=== PATIENT | female | born 1960 | race Caucasian/White ===

== ENCOUNTER → 2023-01-18 | Outpatient (CLI) | payer BC ==
[~2023-01-18] MED LIST: IOHEXOL 350 MG/ML 100ML INFUS..BTL IV ONE; METOPROLOL TARTRATE 1 MG/ML 5ML VIAL IV ONE
== END | disposition home or self-care (01) ==
LOC: RAH 09:10
PROVIDERS: ATTEND Student in an Organized Health Care Education/Training Program
DX: K44.9 Diaphragmatic hernia without obstruction or gangrene (principal); R07.9 Chest pain, unspecified; M47.815 Spondylosis without myelopathy or radiculopathy, thoracolumbar region
CPT/HCPCS: 75574; J3490; Q9967

== ENCOUNTER → 2023-02-15 | Outpatient (CLI) | payer BC | END | disposition home or self-care (01) | LOC: SHCH 10:35 → EDUNIT# 11:00 | PROVIDERS: ATTEND Student in an Organized Health Care Education/Training Program | DX: R07.89 Other chest pain (principal); I70.219 Atherosclerosis of native arteries of extremities with intermittent claudication, unspecified extremity | CPT/HCPCS: 93306; 93925; 93970 ==

== ENCOUNTER 2023-03-16 05:49 | Day surgery (SDC) | payer BC ==
[2023-03-14 14:01] LABS: BASOPHILS # (AUTO) 0.04 K/uL (0.00-0.20); BASOPHILS % (AUTO) 0.7 % (0.0-5.0); EOSINOPHILS # (AUTO) 0.09 K/uL (0.00-0.70); EOSINOPHILS % (AUTO) 1.5 % (0.0-8.0); HEMATOCRIT 40.3 % (36-48); IMMATURE GRANULOCYTE ABSOLUTE 0.02 K/uL (0-1); LYMPHOCYTES # (AUTO) 1.2 K/uL (1.0-4.8); LYMPHOCYTES % (AUTO) 19.5 % (21.0-51.0); MEAN CORPUSCULAR HEMOGLOBIN 31.3 pg (27.0-33.0); MEAN CORPUSCULAR HGB CONC 33.3 g/dL (32.0-36.0); MEAN CORPUSCULAR VOLUME 94.2 fL (79-99); MONOCYTES # (AUTO) 0.5 K/uL (0.1-1.0); MONOCYTES % (AUTO) 7.7 % (3.0-13.0); NEUTROPHILS # (AUTO) 4.3 K/uL (1.8-7.7); NEUTROPHILS % (AUTO) 70.3 % (40.0-77.0); PLATELET COUNT (AUTO) 246 K/uL (130-400); RED BLOOD CELL COUNT(AUTO) 4.28 MIL/uL (4.00-5.50); RED CELL DISTRIBUTION WIDTH 13.1 % (11.0-15.5); WHITE BLOOD COUNT (AUTO) 6.1 K/uL (4.8-10.8)
[2023-03-14 14:10] LABS: CREATININE 0.9 mg/dL (0.5-1.5); POTASSIUM 4.4 mmol/L (3.5-5.1)
[2023-03-14 14:11] LABS: INR < 0.93 (0.85-1.15); PROTHROMBIN TIME 10.5 SEC (9.6-11.6)
[2023-03-14 14:46] VITALS: BP 147/87; PULSE 77; RESP 17
[~2023-03-16] VITALS: Ht 162.6 cm; Wt 75.7 kg
[2023-03-16] VITALS (9 sets, daily range): BP systolic 118–149; BP diastolic 74–91; PULSE 69–84; RESP 14–18
[~2023-03-16 05:49] MED LIST changes: +ACET-2743 PO; +AEC81 PO; +AMLO2.5T4 PO; +FLUO10CA21 PO; +FLUT16H NASAL; +FLUT1DIS3 IH; +GABA300C PO; +HYDR25TA PO; -IOHEXOL 350 MG/ML 100ML INFUS..BTL IV ONE; +LEVO88CA4 PO; +LISI20TA24 PO; -METOPROLOL TARTRATE 1 MG/ML 5ML VIAL IV ONE; +MONT-39 PO; +PREM3 PO; +proair IH; +probiotic PO
[2023-03-16] MEDS ORDERED: 0.9%NACL 1000ML 1,000 ML IV ONE ×2 (06:07→06:08)
[2023-03-16] MEDS ORDERED: VERAPAMIL HCL 2.5 MG/ML VIAL ONE (07:09)
[2023-03-16] MEDS ORDERED: FENTANYL CITRATE PF 50 MCG/1 ML 2ML VIAL ONE (07:09)
[2023-03-16] MEDS ORDERED: MIDAZOLAM HCL 1 MG/ML 2ML VIAL ONE ×2 (07:09→07:36)
[2023-03-16] MEDS ORDERED: IOHEXOL 350 MG/ML 100ML INFUS..BTL IV ONE (07:09)
[2023-03-16] MEDS ORDERED: LIDOCAINE HCL 400MG/20ML VIAL ONE (07:09)
[2023-03-16] MEDS ORDERED: HEPARIN 10,000 UNIT/10ML (1,000 UNIT/ML) VIAL ONE (07:13)
[2023-03-16] MEDS ORDERED: DiphenhydrAMINE HCL 50 MG/ML VIAL ONE (07:49)
[2023-03-16] MEDS ORDERED: TICAGRELOR 90 MG TABLET ONE (08:22)
[2023-03-16] MEDS ORDERED: 0.9%NACL 1000ML 546 ML IV SCH (09:30)
[2023-03-16] MEDS ORDERED: ACETAMINOPHEN WITH CODEINE 1 TAB TAB PO PRN ×2 (09:30)
[2023-03-16] MEDS ORDERED: MORPHINE 5 MG/ML VIAL (5MG OR GREATER DOSE) IVP SCH ×2 (09:30)
[2023-03-16] MEDS ORDERED: ONDANSETRON 4MG INJ IVP SCH (09:30)
[2023-03-16] MEDS ORDERED: ONDANSETRON 4MG INJ IVP PRN (09:30)
[2023-03-16] MEDS ORDERED: TEMAZEPAM 30 MG CAP PO PRN (09:30)
[2023-03-16] MEDS ORDERED: NITROGLYCERIN 50MG/D5W 250ML 1 BOT IV PRN (09:30)
[2023-03-16] MEDS ORDERED: 0.9%NACL 1000ML 1,000 ML IV SCH (10:00)
[2023-03-16] MEDS ORDERED: TICAGRELOR 90 MG TABLET PO SCH (21:00)
[2023-03-17] MEDS ORDERED: ASPIRIN 81MG CHEW TAB PO SCH (09:00)
== END 2023-03-16 13:05 | disposition home or self-care (01) ==
LOC: DAH 05:49
PROVIDERS: ATTEND Student in an Organized Health Care Education/Training Program
DX: I25.119 Atherosclerotic heart disease of native coronary artery with unspecified angina pectoris (principal); I63.50 Cerebral infarction due to unspecified occlusion or stenosis of unspecified cerebral artery; I10 Essential (primary) hypertension; E78.5 Hyperlipidemia, unspecified; I73.9 Peripheral vascular disease, unspecified; G57.93 Unspecified mononeuropathy of bilateral lower limbs; I73.00 Raynaud's syndrome without gangrene; M19.90 Unspecified osteoarthritis, unspecified site; K21.9 Gastro-esophageal reflux disease without esophagitis; Z82.49 Family history of ischemic heart disease and other diseases of the circulatory system; Z80.0 Family history of malignant neoplasm of digestive organs; Z82.5 Family history of asthma and other chronic lower respiratory diseases; Z82.3 Family history of stroke; Z88.1 Allergy status to other antibiotic agents; Z88.8 Allergy status to other drugs, medicaments and biological substances; Z88.5 Allergy status to narcotic agent; Z91.048 Other nonmedicinal substance allergy status; Z72.89 Other problems related to lifestyle; Z87.891 Personal history of nicotine dependence; Z90.49 Acquired absence of other specified parts of digestive tract; Z90.710 Acquired absence of both cervix and uterus; Z98.890 Other specified postprocedural states
CPT/HCPCS: 80048; 85025; 85610; 85730; 36415; 71045; 93005; 92978; 93458; 85347 ×3; C9600; C1769 ×2; C1894 ×3; C1725 ×3; C1874; C1760; C1887; C1753; Q9965 ×2; J1200; J3010; J3490 ×2; J7030 ×2; J1644 ×3; J2250 ×2; Q9967; A4215; A4222; A4221; A4663; A4216; A4606; A4223 ×3; 99156; 99157

== ENCOUNTER 2024-06-10 13:37 | Emergency (ER) | payer BC ==
[~2024-06-10] VITALS: Ht 162.6 cm; Wt 72.1 kg
[2024-06-10 14:37] LABS: BASOPHILS # (AUTO) 0.04 K/uL (0.00-0.20); BASOPHILS % (AUTO) 0.6 % (0.0-5.0); EOSINOPHILS # (AUTO) 0.12 K/uL (0.00-0.70); EOSINOPHILS % (AUTO) 1.9 % (0.0-8.0); HEMATOCRIT 40.2 % (36-48); IMMATURE GRANULOCYTE ABSOLUTE 0.01 K/uL (0-1); LYMPHOCYTES # (AUTO) 1.4 K/uL (1.0-4.8); LYMPHOCYTES % (AUTO) 22.5 % (21.0-51.0); MEAN CORPUSCULAR HEMOGLOBIN 29.3 pg (27.0-33.0); MEAN CORPUSCULAR HGB CONC 32.3 g/dL (32.0-36.0); MEAN CORPUSCULAR VOLUME 90.7 fL (79-99); MONOCYTES # (AUTO) 0.4 K/uL (0.1-1.0); NEUTROPHILS # (AUTO) 4.4 K/uL (1.8-7.7); NEUTROPHILS % (AUTO) 68.8 % (40.0-77.0); PLATELET COUNT (AUTO) 199 K/uL (130-400); RED BLOOD CELL COUNT(AUTO) 4.43 MIL/uL (4.00-5.50); RED CELL DISTRIBUTION WIDTH 11.8 % (11.0-15.5); WHITE BLOOD COUNT (AUTO) 6.4 K/uL (4.8-10.8)
[2024-06-10 14:47] LABS: CREATININE 0.9 mg/dL (0.5-1.0); POTASSIUM 4.4 mmol/L (3.5-5.1)
[2024-06-10 14:51] LABS: ALBUMIN 3.6 g/dL (3.5-5.0); TOTAL PROTEIN, SERUM 7.8 g/dL (6.0-8.3)
--- NOTE | 2024-06-10 16:13 | ERN ---
General Chief Complaint: Abdominal Pain Stated Complaint: SENT BY PHYS Time Seen by MD: 13:38 Source: patient History of Present Illness Initial Comments Patient is a 63-year-old female coming in to be evaluated for abdominal discomfort abdominal swelling. Per patient she started noticing some ecchymosis to her abdominal region decided to come in for further evaluation. Patient has been having abdominal discomfort for about three four days. Allergies: Coded Allergies: meperidine (Unverified Allergy, Mild, NAUSEA, 03/16/23) amoxicillin (Unverified Allergy, Unknown, 03/14/23) cephalexin (Unverified Allergy, Unknown, 03/14/23) clavulanic acid (Unverified Allergy, Unknown, 03/14/23) codeine (Unverified Allergy, Unknown, 03/14/23) Uncoded Allergies: TAPE (Allergy, Unknown, 03/14/23) Home Meds Reported Medications Fluticasone Propionate (Flonase Nasal [place]) 50 Mcg/Actuation [place], 1 SPRAY NASAL AM, SPRAY 03/14/23 [proair] No Conflict Check, 2 PUFF IH AD PRN for SHORTNESS OF BREATH/WHEEZING 03/14/23 Acetaminophen (Tylenol Extra Strength) 500 Mg Tablet, 1000 MG PO AD PRN for PAIN, TAB 03/14/23 [probiotic] No Conflict Check, 1 TAB PO AM 03/14/23 Amlodipine Besylate (Amlodipine Besylate) 2.5 Mg Tablet, 2.5 MG PO AM, TAB 03/14/23 Montelukast Sodium (Montelukast Sodium) 10 Mg Tablet, 10 MG PO AM, TAB 03/14/23 Lisinopril (Lisinopril) 20 Mg Tablet, 20 MG PO HS, TAB 03/14/23 Aspirin (ASPIRIN 81 MG ECTAB) 81 Mg Ectab, 81 MG PO DAILY, TAB.EC 03/14/23 Estrogens,Conjugated (Premarin) 0.3 Mg Tab, 0.3 MG PO AM, TAB 03/14/23 Hydrochlorothiazide (Hydrochlorothiazide) 25 Mg Tablet, 25 MG PO AM, TAB 03/14/23 Fluoxetine HCl (Prozac) 10 Mg Capsule, 10 MG PO AM, CAP 03/14/23 Fluticasone/Salmeterol (Advair 250-50 Diskus) 250 Mcg-50 Mcg/Dose Blst.w.dev, 2 EACH IH AD 03/14/23 Gabapentin (Neurontin) 300 Mg Capsule, 300 MG PO TID, CAP 03/14/23 Levothyroxine Sodium (Levothyroxine) 88 Mcg Capsule, 88 MCG PO AM, CAP 03/14/23 Past Medical History Past Medical History: Stroke Medical History Other: THYROID PROBLEM Past Surgical History: Hysterectomy, Cholecystectomy Surgical History Other: STENT, BREAST IMPLANTS REMOVED, GASTRIC BYPASS ROS Dictation CONSTITUTIONAL: No chills, no fever, no weakness, no diaphoresis, no malaise. HEAD/FACE: No signs of trauma. EENT: No eye pain, no blurred vision, no tearing, no double vision, no ear pain, no ear discharge, no nose pain, no nasal congestion, no throat pain, no throat swelling, no mouth pain. RESPIRATORY: No cough, no orthopnea, no SOB, no stridor, no wheezing. CARDIOVASCULAR: No chest pain, no edema, no palpitations, no syncope. GASTROINTESTINAL/ABDOMINAL: No abdominal pain, no constipation, no diarrhea, no nausea, no vomiting. GENITOURINARY: No abnormal discharge, no dysuria, no frequent urination, no hematuria. No complaints of pain in the genitals. MUSCULOSKELETAL: No back pain, no gout, no joint pain, no joint swelling, no muscle pain, no muscle stiffness, no neck pain. INTEGUMENTARY: No change in color, no change in hair/nails, no dryness, no lesion, no lumps, no rash. NEUROLOGICAL/PSYCH: No anxiety, not depressed, no emotional problem, no headache, no numbness, no pre-existing deficit, no history of seizures, no tremors, no weakness. HEMATOLOGIC/LYMPHATIC: Not anemic, no history of blood clots, no apparent bleeding, no bruising, glands not swollen. All Systems Negative, Except as Noted. Physical Exam Physical Exam Dictation VITAL SIGNS: Reviewed. GENERAL APPEARANCE: Alert, oriented x3, no acute distress, obese. HEAD AND FACE: Non-traumatic. EYES: PERRL, pink conjunctivas, eyelid no trauma, anterior chamber clear. EARS: Pinnas intact and no signs of trauma or erythema. Ear canals clear and no discharge. TMs no erythema. NOSE: No discharge, no bleeding. OROPHARYNX: Mouth normal, teeth no caries, tongue pink. Pharynx clear, no erythema. Tonsils no exudates, no abscesses noted. Mucous membrane moist. NECK: Supple, non-tender, no thyromegaly, no masses, no JVD, no bruits. BREAST: Deferred. CHEST: No tenderness, no crepitus, no paradoxical movement, no retractions. LUNGS: Clear, well-ventilated, symmetric, no rales, no wheezing, no rhonchi, no stridor, good breath sounds bilaterally. HEART: Regular rate, regular rhythm, no murmur, no gallops. VASCULAR: No peripheral edema. ABDOMEN: Soft, positive bowel sounds, nondistended, no guarding, nontender, no rebound, no masses no hepatomegaly, no splenomegaly, no Brown's sign, no hernias. RECTAL: Deferred. GENITAL: Deferred. NEUROLOGICAL: Normal speech, gross motor function intact, gross sensory fu nction intact. MUSCULOSKELETAL: Neck nontender, full range of motion, back nontender, full range of motion. EXTREMITIES: Nontender, full range of motion. SKIN: Color pink, dry, no turgor, no rash, no lacerations, no abrasions, no contusions. LYMPHATICS: Deferred. Results Laboratory and Microbiology Lab and Micro Result Laboratory Tests Test 06/10/24 14:27 White Blood Count 6.4 K/uL (4.8-10.8) Red Blood Count 4.43 MIL/uL (4.00-5.50) Hemoglobin 13.0 g/dL (12.0-16.0) Hematocrit 40.2 % (36-48) Mean Corpuscular Volume 90.7 fL (79-99) Mean Corpuscular Hemoglobin 29.3 pg (27.0-33.0) Mean Corpuscular Hemoglobin Concent 32.3 g/dL (32.0-36.0) Red Cell Distribution Width 11.8 % (11.0-15.5) Platelet Count 199 K/uL (130-400) Mean Platelet Volume 10.1 fL (7.5-10.5) Immature Granulocyte % (Auto) 0.2 % (0-1) Neutrophils (%) (Auto) 68.8 % (40.0-77.0) Lymphocytes (%) (Auto) 22.5 % (21.0-51.0) Monocytes (%) (Auto) 6.0 % (3.0-13.0) Eosinophils (%) (Auto) 1.9 % (0.0-8.0) Basophils (%) (Auto) 0.6 % (0.0-5.0) Neutrophils # (Auto) 4.4 K/uL (1.8-7.7) Lymphocytes # (Auto) 1.4 K/uL (1.0-4.8) Monocytes # (Auto) 0.4 K/uL (0.1-1.0) Eosinophils # (Auto) 0.12 K/uL (0.00-0.70) Basophils # (Auto) 0.04 K/uL (0.00-0.20) Absolute Immature Granulocyte (auto 0.01 K/uL (0-1) Nucleated Red Blood Cells 0.0 % (0.0-0.19) Sodium Level 134 mmol/L (136-145) L Potassium Level 4.4 mmol/L (3.5-5.1) Chloride Level 97 mmol/L (101-111) L Carbon Dioxide Level 31 mmol/L (21-32) Blood Urea Nitrogen 9 mg/dL (7-18) Creatinine 0.9 mg/dL (0.5-1.0) Glomerular Filtration Rate Calc 72 mL/min (>90) Random Glucose 144 mg/dL (70-105) H Total Calcium 9.4 mg/dL (8.5-10.1) Total Bilirubin 1.0 mg/dL (0.2-1.0) Aspartate Amino Transf (AST/SGOT) 77 U/L (10-37) H Alanine Aminotransferase (ALT/SGPT) 47 U/L (12-78) Alkaline Phosphatase 168 U/L (50-136) H Total Creatine Kinase 103 U/L (21-232) Total Protein 7.8 g/dL (6.0-8.3) Albumin 3.6 g/dL (3.5-5.0) Lipase 63 U/L (16-77) Labs Reviewed?: Yes EKG/XRAY/US/CT/MRI Ultrasound Comment [place] [address] [address] IMAGING REPORT Signed PATIENT: MARY LANGE MR#: [id number] : 1960 SEX: F AGE: 63 LOCATION: EDH ORDER 180 STATUS: REG ER REPORT#: [id number] SERVICE 180 REASON: SWELLING ORDERING PHYSICIAN: KANIKA AGUIAR MD PROCEDURE: ABD WALL - US ABD LIMITED/ABD WALL ULTRASOUND ABDOMEN LIMITED INDICATION: Mid abdominal pain COMPARISON: None FINDINGS/IMPRESSION: Bruising and swelling at area of interest without hematoma ORIF hernia demonstrated. DICTATED BY: YESENIA HARDEN MD DATE: 06/10/241842 ELECTRONICALLY SIGNED BY: YESENIA HARDEN MD DATE: 06/10/241846 CT Scan Comment [address] [address] IMAGING REPORT Signed PATIENT: MARY LANGE MR#: [id number] : 1960 SEX: F AGE: 63 LOCATION: ED ORDER 1601 STATUS: REG ER REPORT#: [id number] SERVICE 1600 REASON: abd pain ORDERING PHYSICIAN: KANIKA AGUIAR MD PROCEDURE: ABD PEL WO - CT ABDOMEN/PELVIS W/O CONTRAST CT ABDOMEN WITHOUT CONTRAST. CT PELVIS WITHOUT CONTRAST. INDICATION: Right upper abdominal pain with extensive bruising TECHNIQUE: Routine transaxial imaging using 5 mm slice thickness through the abdomen and pelvis without the administration of IV contrast. Thin slice reconstructions are also provided. Coronal and sagittal reformatted images acquired for interpretation. CT was performed with one or more of the following dose reduction techniques: Automated exposure control, adjustment of the mA and/or kV according to patient size, or use of iterative reconstruction technique. COMPARISON: None FINDINGS: ON NONCONTRAST IMAGING: ABDOMEN: Residual small bilateral deep breast seromas. Heart size is normal. Coronary arterial wall calcific plaque noted. Visible lung bases are clear. Gastric bypass surgery changes. Small hiatal hernia. No abnormal renal calcifications, hydronephrosis, perinephric inflammation, or proximal hydroureter detected. The liver is normal in size and smooth in contour without biliary duct dilation. Diffuse low attenuation of the liver parenchyma suggests fatty change. The spleen is normal in size and attenuation. The gallbladder is absent. The pancreas appears normal without pancreatic duct dilation. The adrenal glands appear normal. No significant abdominal, retrocrural or retroperitoneal adenopathy noted. No evidence for intra-abdominal free air or organized fluid collection. Trace calcific plaque is noted along the abdominal aortic and iliac vessel staples without aneurysmal dilation. Mild anterior right upper abdominal subcutaneous soft tissue swelling. PELVIS: No abnormal calcifications within the urinary bladder or distal ureters. No evidence for free air or organized pelvic fluid collection. No significant pelvic adenopathy detected. Moderate stool burden. Terminal ileum appears unremarkable. The retrocecal appendix appears normal. Uterus is absent. Mild thoracolumbar spondylosis includes shallow lumbar dextroscoliosis. IMPRESSION: 1. Mild anterior right upper abdominal subcutaneous soft tissue swelling without subjacent hematoma or any acute right upper intra-abdominal abnormality. 2. Hepatic steatosis. 3. Small hiatal hernia. DICTATED BY: YESENIA HARDEN MD DATE: 06/10/24 1629 ELECTRONICALLY SIGNED BY: YESENIA HARDEN MD DATE: 06/10/24 1635 [facility] MDM: DIFFERENTIAL DIAGNOSIS: ABDOMINAL PAIN, ECCHYMOSIS, BRUISE PATIENT IS A 63-YEAR-OLD FEMALE COMING IN TO BE EVALUATED FOR ABDOMINAL DISCOMFORT. CT AND ULTRASOUND DISCLOSE A BRUISE ON THE EXTERIOR WALL OF THE ABDOMEN AREA. PATIENT WILL BE DISCHARGED IN STABLE CONDITION SHE STATES SHE WILL FOLLOW UP WITH THE PCP AND KEEP MONITORING THE ECCHYMOSIS. ED Course Orders Procedure Category Date Status Time Cbc With Differential LAB 06/10/24 Complete 14:12 Comprehensive LAB 06/10/24 Complete Metabolic Panel 14:12 Urinalysis Profile LAB 06/10/24 Logged 14:12 Creatine Kinase, Total LAB 06/10/24 Complete 14:12 Lipase LAB 06/10/24 Complete 14:12 Ct Abdomen/Pelvis W/O CT 06/10/24 Resulted Contrast 16:00 Us Abd Limited/Abd US 06/10/24 Resulted Wall 18:05 Vital Signs Date Time Temp Pulse Resp B/P (MAP) Pulse Ox O2 Delivery O2 Flow Rate FiO2 06/10/24 16:50 98.4 71 20 121/76 Room Air* 0 06/10/24 15:49 98.6 74 20 101/5 Room Air* 0 06/10/24 13:43 98.1 82 16 151/82 100 Room Air DX & DISP Disposition: Discharge Departure Impression: Primary Impression: Abdominal wall contusion Condition: Stable Additional Instructions: FOLLOW-UP WITH PRIMARY CARE PROVIDER IN 1 TO 2 DAYS. TAKE MEDICATIONS DIRECTED HERE IN THE EMERGENCY ROOM. OKAY TO CONTINUE HOME MEDICATIONS UNLESS OTHERWISE DISCUSSED DURING YOUR VISIT IN THE EMERGENCY ROOM TODAY. RETURN TO YOUR NEAREST EMERGENCY ROOM IF SYMPTOMS WORSEN OR IF THERE IS NO IMPROVEMENT. CALL 911 IF YOU NEED IMMEDIATE ASSISTANCE. TAKE TYLENOL [id number] NEEDED AND IF NO CONTRAINDICATIONS ARE PRESENT. INCREASE ORAL HYDRATION. A WOUND CULTURE OR URINE CULTURE WAS ORDERED HERE IN THE EMERGENCY ROOM DEPARTMENT PLEASE FOLLOW-UP WITH PRIMARY CARE PROVIDER AND ADVISE THEM TO GET REPEAT PORTS FROM OUR FACILITY. IF YOU HAD ANY CLAUDIA WRAP/SPLINTS THAT WERE APPLIED HERE, PLEASE DO NOT REMOVE THEM UNTIL YOU SEE YOUR PRIMARY CARE OR SPECIALTY. REFERRALS: Referrals: SKYLAR VÁZQUEZ MD (PCP) Time of Disposition: 18:55 KANIKA AGUIAR MD Jun 10, 2024 16:13
--- NOTE | 2024-06-10 16:35 | HMCIMG ---
CT ABDOMEN WITHOUT CONTRAST. CT PELVIS WITHOUT CONTRAST. INDICATION: Right upper abdominal pain with extensive bruising TECHNIQUE: Routine transaxial imaging using 5 mm slice thickness through the abdomen and pelvis without the administration of IV contrast. Thin slice reconstructions are also provided. Coronal and sagittal reformatted images acquired for interpretation. CT was performed with one or more of the following dose reduction techniques: Automated exposure control, adjustment of the mA and/or kV according to patient size, or use of iterative reconstruction technique. COMPARISON: None FINDINGS: ON NONCONTRAST IMAGING: ABDOMEN: Residual small bilateral deep breast seromas. Heart size is normal. Coronary arterial wall calcific plaque noted. Visible lung bases are clear. Gastric bypass surgery changes. Small hiatal hernia. No abnormal renal calcifications, hydronephrosis, perinephric inflammation, or proximal hydroureter detected. The liver is normal in size and smooth in contour without biliary duct dilation. Diffuse low attenuation of the liver parenchyma suggests fatty change. The spleen is normal in size and attenuation. The gallbladder is absent. The pancreas appears normal without pancreatic duct dilation. The adrenal glands appear normal. No significant abdominal, retrocrural or retroperitoneal adenopathy noted. No evidence for intra-abdominal free air or organized fluid collection. Trace calcific plaque is noted along the abdominal aortic and iliac vessel staples without aneurysmal dilation. Mild anterior right upper abdominal subcutaneous soft tissue swelling. PELVIS: No abnormal calcifications within the urinary bladder or distal ureters. No evidence for free air or organized pelvic fluid collection. No significant pelvic adenopathy detected. Moderate stool burden. Terminal ileum appears unremarkable. The retrocecal appendix appears normal. Uterus is absent. Mild thoracolumbar spondylosis includes shallow lumbar dextroscoliosis. IMPRESSION: 1. Mild anterior right upper abdominal subcutaneous soft tissue swelling without subjacent hematoma or any acute right upper intra-abdominal abnormality. 2. Hepatic steatosis. 3. Small hiatal hernia.
--- NOTE | 2024-06-10 18:47 | HMCIMG ---
ULTRASOUND ABDOMEN LIMITED INDICATION: Mid abdominal pain COMPARISON: None FINDINGS/IMPRESSION: Bruising and swelling at area of interest without hematoma ORIF hernia demonstrated.
[2024-06-10 18:59] VITALS: BP 125/74; PULSE 73; RESP 20; TEMP 98.4
== END 2024-06-10 19:24 | disposition home or self-care (01) ==
LOC: EDH 13:37
DX: S30.1XXA Contusion of abdominal wall, initial encounter (principal); Z79.51 Long term (current) use of inhaled steroids; Z79.82 Long term (current) use of aspirin; Z79.899 Other long term (current) drug therapy; Z86.73 Personal history of transient ischemic attack (TIA), and cerebral infarction without residual deficits; Z88.0 Allergy status to penicillin; Z88.1 Allergy status to other antibiotic agents; Z88.5 Allergy status to narcotic agent; Z90.49 Acquired absence of other specified parts of digestive tract; Z90.710 Acquired absence of both cervix and uterus; Z98.84 Bariatric surgery status; X58.XXXA Exposure to other specified factors, initial encounter; Y93.89 Activity, other specified; Y92.89 Other specified places as the place of occurrence of the external cause; Y99.8 Other external cause status
CPT/HCPCS: 36415; 74176; 76705; 80053; 82550; 83690; 85025; 99284; 99285